=== PATIENT | female | born 1980 | race Caucasian/White ===

== ENCOUNTER 2017-12-12 18:40 | Emergency (ER) | payer BC ==
[2017-12-12 18:43] VITALS: TEMP 98.2
--- NOTE | 2017-12-12 19:16 | ED ---
General Adult HPI - General Chief complaint: Chest Pain Stated complaint: chest pain Source: patient Mode of arrival: ambulatory Limitations: no limitations - History of Present Illness Initial comments: Dictation was produced using [employer] dictation software. please excuse any grammatical, word or spelling errors. Chief Complaint: 37-year-old female no significant past medical history presents with 2 days of burning chest pain. History of Present Illness: Patient is a 37-year-old female presents with 2 days of burning chest pain. Patient states she has chest pain that initially started as burning to the right side of her chest. She states that today it made its way to the left side as well. Patient denies any lower [place] symptoms. No history of blood clots per no recent car rides. She is not on exogenous hormones. A family history of thromboembolic disease. Patient states that her symptoms are worse with lying down or sitting and sometimes slightly relieved with standing. Patient denies any constitutional symptoms. No nausea vomiting. She states her pain is rather constant. The ROS documented in this emergency department record has been reviewed and confirmed by me. Those systems with pertinent positive or negative responses have been documented in the HPI. All other systems are other negative and/or noncontributory. - Related Data Allergies Allergy/AdvReac Type Severity Reaction Status Date / Time No Known Allergies Allergy Verified 12/12/17 18:43 Review of Systems ROS Statement: Those systems with pertinent positive or pertinent negative responses have been documented in the HPI. ROS Other: All systems not noted in ROS Statement are negative. Past Medical History Past Medical History: No Reported History History of Any Multi-Drug Resistant Organisms: None Reported Past Surgical History: No Surgical Hx Reported Past Psychological History: No Psychological Hx Reported Smoking Status: Current every day smoker Past Alcohol Use History: Rare Past Drug Use History: None Reported General Exam - General Exam Comments Initial Comments: PHYSICAL EXAM: General Impression: Alert and oriented x3, not in acute distress HEENT: Normocephalic atraumatic, extra-ocular movements intact, pupils equal and reactive to light bilaterally, mucous membranes moist. Cardiovascular: Heart regular rate and rhythm, S1&S2 audible, no murmurs, rubs or gallops Chest: Lungs clear to auscultation bilaterally, no rhonchi, no wheeze, no rales Abdomen: Bowel sounds present, abdomen soft, non-tender, non-distended, no organomegaly Musculoskeletal: Pulses present and equal in all extremities, no peripheral edema Motor: Power 5/5 bilaterally, no focal deficits noted Neurological: CN II-XII grossly intact, no focal motor or sensory deficits noted Skin: Intact with no visualized rashes Psych: Normal affect and mood Limitations: no limitations Course Vital Signs 12/12/17 12/12/17 12/12/17 18:40 19:30 20:00 Temperature 98.2 F Pulse Rate 115 H 83 Respiratory 18 23 Rate Blood Pressure 150/97 143/89 143/89 O2 Sat by Pulse 100 95 Oximetry 12/12/17 12/12/17 20:30 21:00 Temperature Pulse Rate 80 87 Respiratory 19 14 Rate Blood Pressure 130/87 123/85 O2 Sat by Pulse 97 96 Oximetry Medical Decision Making - Medical Decision Making ED course: 37-year-old female presents with burning chest pain 2 days. Vital signs upon arrival shows heart rate of 115, rest of vital signs within normal limits. Laboratory evaluation obtained. CBC unremarkable. The patient does have a platelet count 149. Rest of CBC is unremarkable. Patient had a d-dimer 0.6. Metabolic panel shows mild non-gap acidosis. Patient is mildly hypochloremic. Rest of labs unremarkable. TSH and cardiac enzymes are negative. Given elevated d-dimer we did obtain a CT angios the chest which showed findings of small nodule in the left lung field. No pulmonary embolus. Patient observed with improvement of her rate. Patient appears well. She has no complaints at this time. Patient discharged told to follow-up with her primary care physician in regards to her nodule. Told to come back to the emergency Department with any worsening symptoms. Patient's chest pain is very atypical for acute coronary syndrome. There are no high-risk features. EKG Interpretation: A 12 lead EKG was obtained. It was interpreted by myself and attending physician. There is a P wave before every QRS complex. Rate is 81. Rhythm is normal sinus rhythm, VA interval 176, QRS 96, QTC 455. Patient does have an S1 every 3 T3 pattern.. QT is not prolonged. No ST segment depression or elevation. - Lab Data Result diagrams: 12/12/17 19:25 12/12/17 19:25 Lab Results 12/12/17 12/12/17 12/12/17 Range/Units 19:25 19:25 19:25 WBC 8.7 (3.8-10.6) k/uL RBC 5.13 (3.80-5.40) m/uL Hgb 14.9 (11.4-16.0) gm/dL Hct 44.5 (34.0-46.0) % MCV 86.8 (80.0-100.0) fL MCH 29.0 (25.0-35.0) pg MCHC 33.5 (31.0-37.0) g/dL RDW 12.8 (11.5-15.5) % Plt Count 149 L (150-450) k/uL Neutrophils % 75 % Lymphocytes % 20 % Monocytes % 4 % Eosinophils % 0 % Basophils % 1 % Neutrophils # 6.5 (1.3-7.7) k/uL Lymphocytes # 1.7 (1.0-4.8) k/uL Monocytes # 0.3 (0-1.0) k/uL Eosinophils # 0.0 (0-0.7) k/uL Basophils # 0.1 (0-0.2) k/uL PT (9.0-12.0) sec INR (<1.2) D-Dimer 0.60 H (<0.60) mg/L FEU Sodium 138 (137-145) mmol/L Potassium 4.2 (3.5-5.1) mmol/L Chloride 108 H (98-107) mmol/L Carbon Dioxide 19 L (22-30) mmol/L Anion Gap 11 mmol/L BUN 11 (7-17) mg/dL Creatinine 0.46 L (0.52-1.04) mg/dL Est GFR (CKD-EPI)AfAm >90 (>60 ml/min/1.73 sqM) Est GFR (CKD-EPI)NonAf >90 (>60 ml/min/1.73 sqM) Glucose 99 (74-99) mg/dL Calcium 9.2 (8.4-10.2) mg/dL Troponin I (0.000-0.034) ng/mL TSH (0.465-4.680) mIU/L 12/12/17 12/12/17 12/12/17 Range/Units 19:25 19:25 19:25 WBC (3.8-10.6) k/uL RBC (3.80-5.40) m/uL Hgb (11.4-16.0) gm/dL Hct (34.0-46.0) % MCV (80.0-100.0) fL MCH (25.0-35.0) pg MCHC (31.0-37.0) g/dL RDW (11.5-15.5) % Plt Count (150-450) k/uL Neutrophils % % Lymphocytes % % Monocytes % % Eosinophils % % Basophils % % Neutrophils # (1.3-7.7) k/uL Lymphocytes # (1.0-4.8) k/uL Monocytes # (0-1.0) k/uL Eosinophils # (0-0.7) k/uL Basophils # (0-0.2) k/uL PT 10.4 (9.0-12.0) sec INR 1.1 (<1.2) D-Dimer (<0.60) mg/L FEU Sodium (137-145) mmol/L Potassium (3.5-5.1) mmol/L Chloride (98-107) mmol/L Carbon Dioxide (22-30) mmol/L Anion Gap mmol/L BUN (7-17) mg/dL Creatinine (0.52-1.04) mg/dL Est GFR (CKD-EPI)AfAm (>60 ml/min/1.73 sqM) Est GFR (CKD-EPI)NonAf (>60 ml/min/1.73 sqM) Glucose (74-99) mg/dL Calcium (8.4-10.2) mg/dL Troponin I <0.012 (0.000-0.034) ng/mL TSH 0.677 (0.465-4.680) mIU/L Disposition Clinical Impression: Chest pain Disposition: HOME SELF-CARE Instructions: Chest Pain (ED) Is patient prescribed a controlled substance at d/c from ED?: No Referrals: None,Stated [Primary Care Provider] - 1-2 days Time of Disposition: 22:32
--- NOTE | 2017-12-12 19:37 | XR ---
EXAMINATION TYPE: XR chest 2V DATE OF EXAM: 12/12/2017 COMPARISON: NONE HISTORY: Chest pain TECHNIQUE: Frontal and lateral views of the chest are obtained. FINDINGS: There is no focal air space opacity, pleural effusion, or pneumothorax seen. The cardiac silhouette size is within normal limits. The osseous structures are intact. There are overlying car diac leads. IMPRESSION: No acute cardiopulmonary process.
[2017-12-12 20:40] LABS: Basophils # (A) 0.1 k/uL (0-0.2); Basophils % (A) 1 %; Eosinophils % (A) 0 %; HCT 44.5 % (34.0-46.0); HGB 14.9 gm/dL (11.4-16.0); Lymphocytes # (A) 1.7 k/uL (1.0-4.8); Lymphocytes % (A) 20 %; MCHC 33.5 g/dL (31.0-37.0); MCV 86.8 fL (80.0-100.0); Mean Platelet Volume 7.4; Monocytes # (A) 0.3 k/uL (0-1.0); Monocytes % (A) 4 %; Neutrophils # (A) 6.5 k/uL (1.3-7.7); Neutrophils % (A) 75 %; Platelet Count 149 k/uL (150-450); RBC 5.13 m/uL (3.80-5.40); RDW 12.8 % (11.5-15.5); WBC 8.7 k/uL (3.8-10.6)
[2017-12-12 20:56] LABS: Anion Gap 11 mmol/L; Blood Urea Nitrogen 11 mg/dL (7-17); Calcium 9.2 mg/dL (8.4-10.2); Carbon Dioxide 19 mmol/L (22-30); Chloride 108 mmol/L (98-107); Glucose 99 mg/dL (74-99); Sodium 138 mmol/L (137-145)
[2017-12-12 21:01] LABS: Potassium 4.2 mmol/L (3.5-5.1)
[2017-12-12 21:36] LABS: INR 1.1 (<1.2); Prothrombin Time 10.4 sec (9.0-12.0)
--- NOTE | 2017-12-12 22:16 | CT ---
EXAMINATION TYPE: CT angio chest DATE OF EXAM: 12/12/2017 COMPARISON: Chest x-ray same date HISTORY: CHEST PAIN X1 DAY CT DLP: 319.2 mGycm Automated exposure control for dose reduction was used. CONTRAST: CTA scan of the thorax is performed with IV Contrast, patient injected with 60 mL of Isovue 370, pulm onary embolism protocol. MIP images are created and reviewed. 3D reconstructed images are created o n an independent workstation and reviewed. FINDINGS: LUNGS: The lungs are remarkable for single indeterminate nodule measuring 2-3 mm on axial image 67. There is no pleural effusion or pneumothorax seen. The tracheobronchial tree is patent. AORTA: No additional significant abnormality is seen. MEDIASTINUM: There is satisfactory enhancement of the pulmonary artery and its branches, there is no CT evidence for pulmonary embolism. There are no greater than 1 cm hilar or mediastinal lymph nodes. No pericardial effusion is seen. OTHER: No additional significant abnormality is seen. IMPRESSION: NO PULMONARY EMBOLISM. INDETERMINATE PULMONARY NODULE, FOLLOW-UP RECOMMENDED.
[2017-12-12 22:32] VITALS: BP 131/81; PULSE 80; RESP 12
== END 2017-12-12 22:40 | disposition home or self-care (01) ==
LOC: EC 18:40
DX: R07.9 Chest pain, unspecified (principal); R91.1 Solitary pulmonary nodule; E87.2 Acidosis; E87.8 Other disorders of electrolyte and fluid balance, not elsewhere classified; F17.200 Nicotine dependence, unspecified, uncomplicated
CPT/HCPCS: 36415; 93005; 85379; 80048; 84443; 84484; 85025; 85610; 71046; 71275; 99285; Q9967

== ENCOUNTER → 2018-07-28 | Outpatient (CLI) | payer BC ==
--- NOTE | 2018-07-28 09:41 | MM ---
Reason for exam: screening (asymptomatic). Last mammogram was performed 4 years and 11 months ago. History: Family history of breast cancer in maternal grandmother at age 90. Physical Findings: A clinical breast exam by your physician is recommended on an annual basis and results should be correlated with mammographic findings. MG 3D Screening Mammo W/Cad Bilateral CC and MLO view(s) were taken. Prior study comparison: September 05, 2013, bilateral MG screening mammo w CAD. There are scattered fibroglandular densities. There is chronic nodularity in the left breast. No significant changes when compared with prior studies. ASSESSMENT: Benign, BI-RAD 2 RECOMMENDATION: Routine screening mammogram of both breasts in 1 year.
== END | disposition home or self-care (01) ==
LOC: RADMAMWWP 06:50
PROVIDERS: ATTEND Obstetrics & Gynecology
DX: Z12.31 Encounter for screening mammogram for malignant neoplasm of breast (principal)
CPT/HCPCS: 77063; 77067

== ENCOUNTER → 2019-10-13 | Outpatient (CLI) | payer BC ==
--- NOTE | 2019-10-14 10:39 | MM ---
Reason for exam: screening (asymptomatic). Last mammogram was performed 1 year and 2 months ago. History: Family history of breast cancer in maternal grandmother at age 90. Physical Findings: A clinical breast exam by your physician is recommended on an annual basis and results should be correlated with mammographic findings. MG 3D Screening Mammo W/Cad Bilateral CC and MLO view(s) were taken. Prior study comparison: July 28, 2018, bilateral MG 3d screening mammo w/cad. September 05, 2013, bilateral MG screening mammo w CAD. There are scattered fibroglandular densities. No significant changes when compared with prior studies. ASSESSMENT: Negative, BI-RAD 1 RECOMMENDATION: Routine screening mammogram of both breasts in 1 year.
== END | disposition home or self-care (01) ==
LOC: RADMAMWWP 07:26
PROVIDERS: ATTEND Obstetrics & Gynecology
DX: Z12.31 Encounter for screening mammogram for malignant neoplasm of breast (principal)
CPT/HCPCS: 77063; 77067

== ENCOUNTER 2019-11-01 05:55 | Day surgery (SDC) | payer BC ==
--- NOTE | 2019-10-31 07:46 | P.HPOB ---
History of Present Illness H&P Date: 10/31/19 Chief Complaint: Menorrhagia This patient is a pleasant 39 yr old who presents for an endometrial ablation secondary to longstanding menorrhagia. Evaluation has included an ultrasound which showed normal uterus. She is a tobacco user and therefore not a hormone candidate. She is requesting ablation. Menses are heavy/long and interferring with daily activities. Review of Systems Genitourinary: Reports as per HPI Menstruation: Reports as per HPI, Reports period heavy Past Medical History Past Medical History: No Reported History History of Any Multi-Drug Resistant Organisms: None Reported Past Surgical History: No Surgical Hx Reported Past Anesthesia/Blood Transfusion Reactions: No Reported Reaction Past Psychological History: No Psychological Hx Reported Smoking Status: Current every day smoker Past Alcohol Use History: None Reported, Rare Past Drug Use History: None Reported Medications and Allergies Allergies Allergy/AdvReac Type Severity Reaction Status Date / Time No Known Allergies Allergy Verified 12/12/17 18:43 Exam - OBG Physical Exam Abdomen: bowel sounds normal, no diffuse tenderness, no bruit present, no guarding noted, no hepatomegaly, no splenomegaly, no mass Vulva: both: normal Vagina: normal moisture, no discharge Cervix: no lesion, no discharge Uterus: normal size Adnexa: both: normal Results Transvaginal ultrasound shows a normal uterus. She did have a 3 cm left ovary cyst, which resolved and followed showed a benign 2.5 cm right ovarian cyst. Assessment and Plan Assessment: This is a pleasant 39 yr female with longstanding menorrhagia requesting endometrial ablation. Plan is hysteroscopy, D&C, and Novasure endometrial ab lation. I have discussed this surgery with Carole in detail including the risks: infection, bleeding, possible uterine perforation and/or thermal injury. All of her questions have been answered and a written consent obtained. (1) Menorrhagia Status: Chronic Code(s): N92.0 - EXCESSIVE AND FREQUENT MENSTRUATION WITH REGULAR CYCLE SNOMED Code(s): 054951327
[2019-10-31 09:11] VITALS: BMI 30.1
[~2019-11-01 05:55] MED LIST: DEXAMETHASONE SOD PHOSPHATE 10 MG/ML 1 ML VIAL IV ONE; HYDROmorphone 0.5 MG/0.5 ML SYRINGE IVP PRN; LACTATED RINGERS 1,000 ML IV SCH; LIDOCAINE 1% (10MG/ML) FOR IV START INTRADERMA PRN; MIDAZOLAM 2 MG/2 ML VIAL IV PRN; ONDANSETRON 4 MG/2 ML VIAL IVP ONE; Pre Op ABX Message 1 EACH MISC MISCELLANE ONE
[2019-11-01] MEDS ORDERED: PROPOFOL 10 MG/ML 20 ML VIAL IV ONE (06:48)
[2019-11-01] MEDS ORDERED: SUCCINYLCHOLINE CHLORIDE 100 MG/5 ML SYR IV ONE (06:48)
[2019-11-01] MEDS ORDERED: fentaNYL (PF) 50 MCG/ML 2 ML AMP ONE (06:48)
[2019-11-01] MEDS ORDERED: LIDOCAINE 1% INJ 10MG/ML (20 ML MDV) ONE (06:48)
[2019-11-01] MEDS ORDERED: MIDAZOLAM 2 MG/2 ML VIAL ONE (06:48)
[2019-11-01] MEDS ORDERED: KETOROLAC 15 MG/ML 1 ML VIAL ONE (06:48)
--- NOTE | 2019-11-01 07:26 | P.OP ---
Date of Procedure: 11/01/19 Preoperative Diagnosis: Menorrhagia Postoperative Diagnosis: Same Procedure(s) Performed: #1: Hysteroscopy. #2: Dilation and curettage. #3: NovaSure endometrial ablation Anesthesia: JOE Surgeon: Viktor Roman Estimated Blood Loss (ml): 10 Urine output (ml): 25 Pathology: other (Uterine curettings) Condition: stable Disposition: PACU Indications for Procedure: Please see dictated H&P for intimate details of this patient's admission. In brief summary this is a pleasant 39-year-old multiparous patient who's had long- standing menorrhagia that is getting progressively worse requesting endometrial ablation for treatment. Patient ultrasound which was unremarkable. Patient understands this surgery and risks including risks of infection, bleeding, possible uterine perforation, and/or thermal injury. All the patient's questions are answered written consent is obtained. Operative Findings: This patient normal appearing endometrial cavity. Description of Procedure: This patient is taken to the operating room where she is laid in the supine position. She subsequent undergoes general endotracheal anesthesia without incident. An adequate level of anesthesia, patient has a perineal vaginal prep and drape. Examination under anesthesia shows a retroverted uterus of normal size. I first placed a weighted speculum posterior vagina. The anterior lip of the cervix was grabbed with an Allis clamp. With this done the bladder is then drained for 25 mL of clear urine. Uterus is sounded to 8 cm retroverted. Gentle dilation is then done of the endocervix to allow the hysteroscope into the uterine cavity. Hysteroscopy is performed with saline solution and the cavity is measured to be a length of 5.5 cm. There is no evidence of any polyps or fibroids. This done the hysteroscope was removed. Cervix is dilated more to allow a small curette easily and the uterine cavity a gentle but thorough 4 quadrant curettage is then done. This completed the NovaSure device is then opened. It appears to be intact. It is set at a length of 5.5 cm, seated in place and opens up to a width of 3.6 cm. With this done it passes the cavity integrity test. It is then enabled at 109 W setting for 43 seconds. This done the NovaSure device is then removed and appears to be intact. Hysteroscopy is then performed and the ablation appears to be completed up to the endocervix. Good results are noted. The Allis clamp and weighted speculum removed. All counts are correct 3. There are no complications. Patient is awakened from anesthesia and taken to the recovery room in satisfactory condition.
[2019-11-01 07:47] VITALS: TEMP 97.8
[2019-11-01 08:32] VITALS: BP 159/98; PULSE 71; RESP 16
== END 2019-11-01 08:47 | disposition home or self-care (01) ==
LOC: OR 05:55
PROVIDERS: ATTEND Obstetrics & Gynecology
DX: N92.0 Excessive and frequent menstruation with regular cycle (principal); N83.201 Unspecified ovarian cyst, right side; F17.200 Nicotine dependence, unspecified, uncomplicated; K21.9 Gastro-esophageal reflux disease without esophagitis
CPT/HCPCS: 81025; 88305; 58563; J2250; J1100; J2405; J2001; J3010; J1885; J0330; J2704

== ENCOUNTER → 2019-12-28 | Outpatient (CLI) | payer BC | END | disposition home or self-care (01) | LOC: LABWHC1 13:26 | PROVIDERS: ATTEND Family Medicine | DX: Z03.818 Encounter for observation for suspected exposure to other biological agents ruled out (principal) | CPT/HCPCS: U0003; C9803 ==

== ENCOUNTER → 2020-11-01 | Outpatient (CLI) | payer BC ==
[2020-11-01 08:06] LABS: Basophils # (A) 0.1 k/uL (0-0.2); Basophils % (A) 1 %; Eosinophils # (A) 0.1 k/uL (0-0.7); Eosinophils % (A) 1 %; HCT 46.8 % (34.0-46.0); HGB 16.4 gm/dL (11.4-16.0); Lymphocytes % (A) 28 %; MCH 30.6 pg (25.0-35.0); MCHC 35.1 g/dL (31.0-37.0); MCV 87.1 fL (80.0-100.0); Mean Platelet Volume 7.5; Monocytes # (A) 0.2 k/uL (0-1.0); Monocytes % (A) 3 %; Neutrophils # (A) 4.7 k/uL (1.3-7.7); Neutrophils % (A) 65 %; Platelet Count 188 k/uL (150-450); RBC 5.38 m/uL (3.80-5.40); RDW 12.7 % (11.5-15.5); WBC 7.2 k/uL (3.8-10.6)
[2020-11-01 08:19] LABS: ALT 19 U/L (4-34); AST 23 U/L (14-36); African American GFR (CKD) >90 (>60 ml/min/1.73 sqM); Albumin 3.9 g/dL (3.5-5.0); Albumin/Globulin Ratio 1.3; Alkaline Phosphatase 79 U/L (38-126); Anion Gap 8 mmol/L; Blood Urea Nitrogen 12 mg/dL (7-17); Calcium 9.2 mg/dL (8.4-10.2); Carbon Dioxide 22 mmol/L (22-30); Chloride 108 mmol/L (98-107); Glucose 102 mg/dL (74-99); Non-African American GFR(CKD) >90 (>60 ml/min/1.73 sqM); Potassium 3.9 mmol/L (3.5-5.1); Sodium 138 mmol/L (137-145); Total Bilirubin 0.8 mg/dL (0.2-1.3); Total Protein 6.9 g/dL (6.3-8.2)
[2020-11-01 22:31] LABS: Chol/HDL Ratio 6.23; Cholesterol 218 mg/dL (0-200); LDL Cholesterol,Calculated 136.2 mg/dL (0.0-131.0)
--- NOTE | 2020-11-02 09:51 | MM ---
Reason for exam: screening (asymptomatic). Last mammogram was performed 1 year and 1 month ago. History: Family history of breast cancer in maternal grandmother at age 90. Physical Findings: A clinical breast exam by your physician is recommended on an annual basis and results should be correlated with mammographic findings. MG 3D Screening Mammo W/Cad Bilateral CC and MLO view(s) were taken. Prior study comparison: October 13, 2019, bilateral MG 3d screening mammo w/cad. July 28, 2018, bilateral MG 3d screening mammo w/cad. There are scattered fibroglandular densities. There is no discrete abnormality. No significant changes when compared with prior studies. ASSESSMENT: Negative, BI-RAD 1 RECOMMENDATION: Routine screening mammogram of both breasts in 1 year.
== END | disposition home or self-care (01) ==
LOC: RADMAMWWP 07:02
PROVIDERS: ATTEND Obstetrics & Gynecology
DX: Z00.00 Encounter for general adult medical examination without abnormal findings (principal); Z11.59 Encounter for screening for other viral diseases; Z80.3 Family history of malignant neoplasm of breast
CPT/HCPCS: 36415; 77063; 77067; 80053; 80061; 84439; 84443; 85025; 86803

== ENCOUNTER → 2021-12-10 | Outpatient (CLI) | payer BC ==
--- NOTE | 2021-12-10 10:40 | MM ---
Reason for Exam: Screening (asymptomatic). Last mammogram was performed 1 year(s) and 2 month(s) ago. Patient History: Menarche at age 10. First Full-Term at age 24. Maternal grandmother had breast cancer, age 90. Last menstrual period: 12/03/2021 Risk Values: Su 5 year model risk: 0.8%. NCI Lifetime model risk: 10.8%. Prior Study Comparison: 07/28/2018 Bilateral Screening Mammogram, [facility]. 10/13/2019 Bilateral Screening Mammogram, [facility]. 11/01/2020 Bilateral Screening Mammogram, [facility]. Tissue Density: There are scattered fibroglandular densities. Findings: Analyzed By CAD. Benign-appearing bilateral axillary lymph nodes are redemonstrated. There is no suspicious group of microcalcifications or new suspicious mass in either breast. Overall Assessment: Negative, BI-RAD 1 Management: Screening Mammogram of both breasts in 1 year. A clinical breast exam by your physician is recommended on an annual basis and results should be correlated with mammographic findings. Electronically signed and approved by: Kendrick Ramírez M.D.
== END | disposition home or self-care (01) ==
LOC: RADMAMWWP 07:06
PROVIDERS: ATTEND Obstetrics & Gynecology
DX: Z12.31 Encounter for screening mammogram for malignant neoplasm of breast (principal); Z80.3 Family history of malignant neoplasm of breast
CPT/HCPCS: 77063; 77067

== ENCOUNTER → 2022-12-30 | Outpatient (CLI) | payer BC ==
--- NOTE | 2022-12-30 15:01 | MM ---
Reason for Exam: Screening (asymptomatic). Last screening mammogram was performed 12 month(s) ago. Patient History: Menarche at age 10. First Full-Term at age 24. Premenopausal. Maternal grandmother had breast cancer, age 90. Last menstrual period: 12/09/2022 Risk Values: Su 5 year model risk: 0.9%. NCI Lifetime model risk: 10.7%. Prior Study Comparison: 07/28/2018 Bilateral Screening Mammogram, [facility]. 10/13/2019 Bilateral Screening Mammogram, [facility]. 11/01/2020 Bilateral Screening Mammogram, [facility]. 12/10/2021 Bilateral MG 3D screening mammo w/cad, [facility]. Tissue Density: There are scattered fibroglandular densities. Findings: Analyzed By CAD. There is no suspicious group of microcalcifications or new suspicious mass. Overall Assessment: Negative, BI-RAD 1 Management: Screening Mammogram of both breasts in [address] [facility] will attempt to contact patient to return for supplemental views and ultrasound if indicated. Patient should continue monthly self-breast exams. A clinical breast exam by your physician is recommended on an annual basis. This exam should not preclude additional follow-up of suspicious palpable abnormalities. Note on Su scores and lifetime risk: 1. A Su score greater than 3% is considered moderate risk. If this is the case, consider specialist referral to assess eligibility for a risk reducing agent. 2. If overall lifetime risk for the development of breast cancer is 20% or higher, the patient may qualify for future screening with alternating mammogram and breast MRI. Electronically signed and approved by: Isaías Hendricks DO
== END | disposition home or self-care (01) ==
LOC: RADMAMWWP 12:34
PROVIDERS: ATTEND Obstetrics & Gynecology
DX: Z12.31 Encounter for screening mammogram for malignant neoplasm of breast (principal); Z80.3 Family history of malignant neoplasm of breast
CPT/HCPCS: 77063; 77067

== ENCOUNTER → 2024-01-28 | Outpatient (CLI) | payer BC ==
--- NOTE | 2024-02-01 11:23 | MM ---
Reason for Exam: Screening (asymptomatic). Last mammogram was performed 1 year(s) and 1 month(s) ago. Patient History: Menarche at age 10. First Full-Term at age 24. Premenopausal. Maternal grandmother had breast cancer, age 90. Last menstrual period: 01/10/2024 Risk Values: Su 5 year model risk: 0.9%. NCI Lifetime model risk: 10.6%. Prior Study Comparison: 11/01/2020 Bilateral Screening Mammogram, [facility]. 12/10/2021 Bilateral MG 3D screening mammo w/cad, [facility]. 12/30/2022 Bilateral MG 3D screening mammo w/cad, [facility]. Tissue Density: The breasts are heterogeneously dense, which may obscure small masses. Findings: Analyzed By CAD. There is no suspicious group of microcalcifications or new suspicious mass in either breast. Stable chronic nodularity. Overall Assessment: Benign, BI-RAD 2 Management: Screening Mammogram of both breasts in 1 year. . Patient should continue monthly self-breast exams. A clinical breast exam by your physician is recommended on an annual basis. This exam should not preclude additional follow-up of suspicious palpable abnormalities. Note on Su scores and lifetime risk: 1. A Su score greater than 3% is considered moderate risk. If this is the case, consider specialist referral to assess eligibility for a risk reducing agent. 2. If overall lifetime risk for the development of breast cancer is 20% or higher, the patient may qualify for future screening with alternating mammogram and breast MRI. [facility], , 02/01/2024 11:17 AM. Electronically signed and approved by: Dada Richard M.D. [facility]
== END | disposition home or self-care (01) ==
LOC: RADMAMWWP 08:10
PROVIDERS: ATTEND Obstetrics & Gynecology
DX: Z12.31 Encounter for screening mammogram for malignant neoplasm of breast (principal); Z80.3 Family history of malignant neoplasm of breast; R92.333 Mammographic heterogeneous density, bilateral breasts
CPT/HCPCS: 77063; 77067